=== PATIENT | female | born 1995 | race Two or more races ===

== ENCOUNTER 2016-10-04 18:42 | Emergency (ER) | payer OTHER ==
[2016-10-04] MEDS ORDERED: NS 1,000 ML IV ONE (19:06)
[2016-10-04] MEDS ORDERED: ACETAMINOPHEN 325 MG TAB PO ONE (19:06)
[2016-10-04] MEDS ORDERED: IBUPROFEN 600 MG TAB PO ONE (19:06)
--- NOTE | 2016-10-04 19:49 | EDPHY ---
H & P Stated Complaint: Fever, aches all over HPI/ROS: Chief complaint: Cold symptoms History of present illness: This is an otherwise healthy 20-year-old female who presents to the emergency department for cold symptoms. Patient reports the onset of symptoms today. She reports fevers, headache, runny nose, nasal congestion and sore throat. She denies precipitating factors. She denies alleviating factors. She denies other associated signs or symptoms including no neck pain or back pain, no chest congestion, no cough, no trouble breathing, no rash. - Personal History LMP (Females 10-55): 1-7 Days Ago Current Tetanus Diphtheria and Acellular Pertussis (TDAP): Yes - Medical/Surgical History Other PMH: neg per pt - Social History Smoking Status: Never smoked - Physical Exam Exam: General Appearance: Alert and no distress. Eyes: Pupils equal and round no injection. ENT: Tympanic membranes, external auditory canals, external ears and surrounding soft tissue including over the mastoids are unremarkable. Nasopharynx is injected. There is clear rhinorrhea. Oropharynx is injected. There is no edema. There is no exudate. There is no asymmetry. The uvula is midline. No elevation of the tongue. There is no hoarseness, no drooling, no trismus, no stridor. Respiratory: Chest is nontender, lungs are clear to auscultation. Cardiac: regular rate and rhythm. Musculoskeletal: Neck is supple and nontender. Extremities have full range of motion and are nontender. Skin: No rashes or lesions. Neurological: Alert and oriented x4. No meningismus. Constitutional: Initial Vital Signs Temperature (C) 38.1 C 10/04/16 18:43 Heart Rate 117 H 10/04/16 18:43 Respiratory Rate 18 10/04/16 18:43 Blood Pressure 99/72 L 10/04/16 18:43 O2 Sat (%) 98 10/04/16 18:43 O2 Delivery Mode Room Air Allergies/Adverse Reactions: No Known Allergies Allergy (Unverified 10/04/16 18:47) Home Medications: Medication Instructions Recorded NK [No Known Home Meds] 10/04/16 Medical Decision Making ED Course/Re-evaluation: Patient seen under the supervision of my primary supervising physician Dr. Juana Camacho. Patient presents to the emergency department for cold symptoms. She is nontoxic. Monospot is negative, strep and flu swabs negative. Patient is IV hydrated and symptomatically treated with ibuprofen and tylenol. She is feeling better. I believe she is likely suffering from a URI. My suspicion for other pathology is low. I do not believe this is meningitis as she lacks meningeal symptoms. I do not believe a lumbar puncture is warranted. Patient is discharged home. Home care is discussed. Return precautions are given. Patient voiced understanding and agreement with plan. Differential Diagnosis: Included but not limited to upper respiratory tract infections, lower respiratory tract infections, influenza, unlikely meningitis - Data Points Laboratory Results: 10/04/16 10/04/16 10/04/16 Unknown 19:04 19:04 Monoscreen Influenza Typ A,B (DFA) NEGATIVE FOR FLU (NEGATIVE) Group A Strep Screen NEGATIVE (NEGATIVE) Group A Strep DNA Pending 10/04/16 19:04 Monoscreen NEGATIVE (NEGATIVE) Influenza Typ A,B (DFA) Group A Strep Screen Group A Strep DNA Medications Given: Discontinued Medications Acetaminophen (Tylenol) 650 mg PO EDNOW ONE Stop: 10/04/16 19:07 Last Admin: 10/04/16 19:15 Dose: 650 mg Sodium Chloride (Ns) 1,000 mls @ 0 mls/hr IV ONCE ONE PRN Reason: Wide Open Stop: 10/04/16 19:07 Last Admin: 10/04/16 19:10 Dose: 1,000 mls Ibuprofen (Motrin) 600 mg PO EDNOW ONE Stop: 10/04/16 19:07 Last Admin: 10/04/16 19:15 Dose: 600 mg Departure - Departure Disposition: Home, Routine, Self-Care Clinical Impression: URI, acute Condition: Good Instructions: Upper Respiratory Infection (ED) Additional Instructions: Follow-up with a primary care doctor for recheck If symptoms worsen or new symptoms develop return to the emergency room for recheck Referrals: [facility], [Other] - As per Instructions [facility],. [Clinic] - As per Instructions Stand Alone Forms: School Excuse, Work Excuse
[2016-10-04 19:54] VITALS: BP 105/68; PULSE 95; RESP 16; TEMP 98.2; O2SAT 94
== END 2016-10-04 20:17 | disposition home or self-care (01) ==
DX: J06.9 Acute upper respiratory infection, unspecified (principal)